=== PATIENT | female | born 1940 | race Caucasian/White ===

== ENCOUNTER → 2016-09-04 | Outpatient (CLI) | payer MEDICARE, BC ==
[~2016-09-04] MED LIST: ALEVE 220MG220 MG PO
== END ==
LOC: MC.RAD 13:54
DX: Z12.31 Encounter for screening mammogram for malignant neoplasm of breast (principal)

== ENCOUNTER → 2017-09-28 | Outpatient (CLI) | payer MEDICARE, BC | LOC: MC.RAD 10:35 | DX: Z12.31 Encounter for screening mammogram for malignant neoplasm of breast (principal) ==

== ENCOUNTER → 2018-09-29 | Outpatient (CLI) | payer MEDICARE, BC | LOC: MC.RAD 10:39 | DX: Z12.31 Encounter for screening mammogram for malignant neoplasm of breast (principal); R92.0 Mammographic microcalcification found on diagnostic imaging of breast ==

== ENCOUNTER → 2018-10-05 | Outpatient (CLI) | payer MEDICARE, BC | LOC: MC.RAD 13:23 | DX: R92.0 Mammographic microcalcification found on diagnostic imaging of breast (principal) ==

== ENCOUNTER 2019-09-01 08:14 | Day surgery (SDC) | payer MEDICARE, BC ==
[~2019-09-01] VITALS: Ht 160 cm; Wt 68.7 kg
[2019-09-01] MEDS ORDERED: FOSAMAX 70MG TA70 MG PO (08:30)
[2019-09-01] MEDS ORDERED: MULTI VITAMINS1 TAB PO (08:30)
[2019-09-01] MEDS ORDERED: LUTEIN20 M1 PO (08:31)
[2019-09-01] MEDS ORDERED: VITAMIN D 400400 IU PO (08:31)
[2019-09-01] MEDS ORDERED: GLUCOSAMINE & C1 CA2 PO (08:31)
[2019-09-01] MEDS ORDERED: COLACE 100100 MG/CAP PO (08:32)
[2019-09-01] MEDS ORDERED: CALCIUM CARBON650 M2 PO (08:32)
[2019-09-01] MEDS ORDERED: ALEVE 220MG220 MG PO (08:32)
[2019-09-01 08:42] VITALS: BP 147/109; PULSE 83; TEMP 98.7
[2019-09-01 09:45] VITALS: BP 125/110; PULSE 76; TEMP 97.5
--- NOTE | 2019-09-01 09:45 | NUR ---
The patient arrived back to [facility] at this time. The patient ambulated from the cart to the recliner in her room with the stand by assist using a steady gait and appeared to tolerate the activity well. Vital signs were started at this time. The patient requests to get dressed at this time. The patient's INT was removed in the endoscopy suite. Will continue to monitor the patient.
[2019-09-01 10:00] VITALS: BP 141/83; PULSE 76
--- NOTE | 2019-09-01 10:00 | NUR ---
The patient is dressed and requests to try some water at this time. The patient's vital signs appear stable. The patient's daughter was brought back to be at her bedside. Will continue to monitor the patient.
[2019-09-01 10:14] VITALS: BP 133/89; PULSE 73
--- NOTE | 2019-09-01 10:14 | NUR ---
The patient and her daughter have both spoke with Dr. Cage about the finsings of the procedure. Discharge instructions were reviewed with the patient and her daughter and they both verbalized understanding and have no questions for the nurse at this time. The patietn is dressed and ready to be escorted out.
--- NOTE | 2019-09-01 10:20 | NUR ---
The patient was escorted out via wheelchair to a private vehicle by BONILLA Rosales. The patient's belongings and discharge paperwork were sent with her. The patient's daughter is present to drive her home.
== END 2019-09-01 10:20 | disposition home or self-care (01) ==
LOC: SDCO 08:14
DX: Z12.11 Encounter for screening for malignant neoplasm of colon (principal); Z86.010 Personal history of colon polyps; Z88.0 Allergy status to penicillin
CPT/HCPCS: J2250; J3010; J7030

== ENCOUNTER → 2019-10-02 | Outpatient (CLI) | payer MEDICARE, BC ==
[~2019-10-02] MED LIST changes: +CALCIUM CARBON650 M2 PO; +COLACE 100100 MG/CAP PO; +FOSAMAX 70MG TA70 MG PO; +GLUCOSAMINE & C1 CA2 PO; +LUTEIN20 M1 PO; +MULTI VITAMINS1 TAB PO; +VITAMIN D 400400 IU PO
== END ==
LOC: MC.RAD 09:56
DX: Z12.31 Encounter for screening mammogram for malignant neoplasm of breast (principal)

== ENCOUNTER → 2020-12-10 | Outpatient (CLI) | payer MEDICARE, BC | LOC: MC.RAD 13:07 | DX: Z12.31 Encounter for screening mammogram for malignant neoplasm of breast (principal) ==

== ENCOUNTER 2022-01-17 12:29 | Emergency (ER) | payer MEDICARE, BC ==
[~2022-01-17] VITALS: Ht 160 cm; Wt 72.7 kg
[2022-01-17 12:44] VITALS: TEMP 97.9
[2022-01-17] MEDS ORDERED: PERCOCET 325 MG1 TA2 PO (14:34)
[2022-01-17 14:56] VITALS: BP 177/100; PULSE 96
== END 2022-01-17 14:57 | disposition home or self-care (01) ==
LOC: COL.ER 12:29
DX: S13.4XXA Sprain of ligaments of cervical spine, initial encounter (principal); S80.01XA Contusion of right knee, initial encounter; S00.31XA Abrasion of nose, initial encounter; S09.90XA Unspecified injury of head, initial encounter; Z87.891 Personal history of nicotine dependence; W10.9XXA Fall (on) (from) unspecified stairs and steps, initial encounter; W22.8XXA Striking against or struck by other objects, initial encounter